=== PATIENT | male | born 1975 | race Two or more races ===

== ENCOUNTER → 2016-05-10 | Outpatient (CLI) | payer BC, OTHER ==
[2016-05-10 09:24] LABS: BASO % 0.3 % (0.0-1.0); EOS # 0.2 K/mm3 (0.0-0.50); EOS % 2.3 % (0.0-3.0); LARGE UNSTAINED CELL # 0.1 K/mm3 (0.0-0.4); LARGE UNSTAINED CELL % 1.7 % (0.0-4.0); LYMPH # 1.8 K/mm3 (1.5-4.5); LYMPH % 25.7 % (24.0-44.0); MEAN CORPUSCULAR HGB CONC 35.4 g/dl (32.0-36.5); MEAN CORPUSCULAR VOLUME 84.8 fl (80.0-96.0); MONO # 0.4 K/mm3 (0.0-0.8); MONO % 6.2 % (0.0-5.0); NEUTROPHILS # 4.5 K/mm3 (1.8-7.7); NEUTROPHILS % 63.7 % (36.0-66.0); PLATELET COUNT, AUTOMATED 173 k/mm3 (150-450); RED CELL DISTRIBUTION WIDTH 12.7 % (11.5-14.5); WHITE BLOOD COUNT 7.1 K/mm3 (4.0-10.0)
[2016-05-10 09:52] LABS: ALBUMIN 3.9 GM/DL (3.2-5.2); ALBUMIN/GLOBULIN RATIO 1.44 (1.00-1.93); ALKALINE PHOSPHATASE 61 U/L (45-117); ALT/SGPT 19 U/L (12-78); ANION GAP 7 MEQ/L (8-16); AST/SGOT 11 U/L (15-37); BILIRUBIN,TOTAL 0.6 MG/DL (0.2-1.0); BLOOD UREA NITROGEN 12 MG/DL (7-18); CALCIUM LEVEL 8.6 MG/DL (8.5-10.1); CARBON DIOXIDE LEVEL 30 MEQ/L (21-32); CHLORIDE LEVEL 106 MEQ/L (98-107); CHOLESTEROL LEVEL 178 MG/DL (<200); CREATININE FOR GFR 1.23 MG/DL (0.70-1.30); FREE T4 1.09 NG/DL (0.76-1.46); GLOMERULAR FILTRATION RATE > 60.0 (>60); GLUCOSE, FASTING 125 MG/DL (70-105); POTASSIUM SERUM 4.6 MEQ/L (3.5-5.1); SODIUM LEVEL 143 MEQ/L (136-145); TOTAL PROTEIN 6.6 GM/DL (6.4-8.2); TRIGLYCERIDES LEVEL 50 MG/DL (<150)
== END ==
LOC: M LAB 05-05 08:49
PROVIDERS: ATTEND Family Medicine
DX: R53.82 Chronic fatigue, unspecified (principal); E66.09 Other obesity due to excess calories

== ENCOUNTER → 2016-05-18 | Outpatient (CLI) | payer BC, OTHER | LOC: M LAB 08:27 | PROVIDERS: ATTEND Family Medicine | DX: R73.9 Hyperglycemia, unspecified (principal) ==

== ENCOUNTER 2017-04-18 14:55 | Emergency (ER) | payer BC, OTHER ==
[2017-04-18] MEDS: NS 1,000 ML IV (15:45)
[2017-04-18] MEDS: MECLIZINE 25 MG TABLET PO (16:02)
[2017-04-18 16:22] LABS: BASO % 0.4 % (0.0-1.0); EOS # 0.2 10^3/uL (0.0-0.50); EOS % 2.2 % (0.0-3.0); HEMATOCRIT 45.3 % (42.0-52.0); HEMOGLOBIN 15.6 g/dl (14.0-18.0); IMMATURE GRANULOCYTE % 0.3 % (0-3.0); LYMPH % 21.6 % (24.0-44.0); MEAN CORPUSCULAR HEMOGLOBIN 28.9 pg (27.0-33.0); MEAN CORPUSCULAR HGB CONC 34.4 g/dl (32.0-36.5); MEAN CORPUSCULAR VOLUME 83.9 fl (80.0-96.0); MONO # 0.6 10^3/uL (0.0-0.8); MONO % 6.6 % (0.0-5.0); NEUTROPHILS # 6.5 10^3/uL (1.8-7.7); NEUTROPHILS % 68.9 % (36.0-66.0); PLATELET COUNT, AUTOMATED 182 10^3/uL (150-450); RED CELL DISTRIBUTION WIDTH 12.6 % (11.5-14.5); WHITE BLOOD COUNT 9.4 10^3/uL (4.0-10.0)
[2017-04-18 16:42] LABS: AMMONIA < 10 uMOL/L (<32)
[2017-04-18 16:59] LABS: ALBUMIN 4.3 GM/DL (3.2-5.2); ALBUMIN/GLOBULIN RATIO 1.34 (1.00-1.93); ALKALINE PHOSPHATASE 65 U/L (45-117); ALT/SGPT 23 U/L (12-78); ANION GAP 6 MEQ/L (8-16); AST/SGOT 15 U/L (7-37); BILIRUBIN,DIRECT 0.2 MG/DL (0.0-0.2); BILIRUBIN,TOTAL 0.7 MG/DL (0.2-1.0); BLOOD UREA NITROGEN 14 MG/DL (7-18); CALCIUM LEVEL 8.4 MG/DL (8.5-10.1); CARBON DIOXIDE LEVEL 27 MEQ/L (21-32); CHLORIDE LEVEL 106 MEQ/L (98-107); CPK CREATINE PHOSPHOKINASE 97 U/L (39-308); CREATININE FOR GFR 1.18 MG/DL (0.70-1.30); GLOMERULAR FILTRATION RATE > 60.0 (>60); GLUCOSE, FASTING 101 MG/DL (70-100); POTASSIUM SERUM 3.9 MEQ/L (3.5-5.1); SALICYLATE LEVEL < 1.7 MG/DL (5.0-30.0); SODIUM LEVEL 139 MEQ/L (136-145); TOTAL PROTEIN 7.5 GM/DL (6.4-8.2); TROPONIN I < 0.02 NG/ML (< 0.10)
[2017-04-18 17:04] LABS: MB/CK RELATIVE INDEX 1.03 (< OR =4)
[2017-04-18 17:09] LABS: ACETAMINOPHEN LEVEL < 2.0 UG/ML (10.0-30.0); ETHYL ALCOHOL (ETHANOL) < 0.003 % (0.000-0.010)
[2017-04-18 17:56] LABS: AMPHETAMINES LEVEL URINE NEGATIVE (NEGATIVE); BARBITURATES URINE NEGATIVE (NEGATIVE); BENZODIAZEPINES URINE NEGATIVE (NEGATIVE); CANNABINOIDS URINE NEGATIVE (NEGATIVE); COCAINE METABOLITE URINE NEGATIVE (NEGATIVE); METHADONE URINE NEGATIVE (NEGATIVE); OPIATES URINE NEGATIVE (NEGATIVE); PHENCYCLIDINE URINE NEGATIVE (NEGATIVE)
== END 2017-04-18 18:07 | disposition home or self-care (01) ==
LOC: M ED 14:55
DX: R42 Dizziness and giddiness (principal); J01.90 Acute sinusitis, unspecified; R00.1 Bradycardia, unspecified; Z88.6 Allergy status to analgesic agent
CPT/HCPCS: 71046

== ENCOUNTER → 2017-06-29 | Outpatient (CLI) | payer BC, OTHER ==
[2017-06-29 10:50] LABS: BASO % 0.3 % (0.0-1.0); EOS # 0.2 10^3/uL (0.0-0.50); HEMATOCRIT 42.9 % (42.0-52.0); HEMOGLOBIN 15.1 g/dl (13.5-17.5); IMMATURE GRANULOCYTE % 0.2 % (0-3.0); LYMPH # 1.8 10^3/uL (1.5-4.5); LYMPH % 27.3 % (24.0-44.0); MEAN CORPUSCULAR HEMOGLOBIN 29.3 pg (27.0-33.0); MEAN CORPUSCULAR HGB CONC 35.2 g/dl (32.0-36.5); MEAN CORPUSCULAR VOLUME 83.1 fl (80.0-96.0); MONO # 0.6 10^3/uL (0.0-0.8); MONO % 9.7 % (0.0-5.0); NEUTROPHILS % 59.5 % (36.0-66.0); PLATELET COUNT, AUTOMATED 179 10^3/uL (150-450); RED BLOOD COUNT 5.16 10^6/uL (4.30-6.10); RED CELL DISTRIBUTION WIDTH 12.7 % (11.5-14.5); WHITE BLOOD COUNT 6.6 10^3/uL (4.0-10.0)
[2017-06-29 11:15] LABS: TESTOSTERONE 531 NG/DL (241-827)
[2017-06-29 11:18] LABS: ALBUMIN 4.1 GM/DL (3.2-5.2); ALBUMIN/GLOBULIN RATIO 1.52 (1.00-1.93); ALKALINE PHOSPHATASE 65 U/L (45-117); ALT/SGPT 24 U/L (12-78); ANION GAP 6 MEQ/L (8-16); AST/SGOT 12 U/L (7-37); BILIRUBIN,TOTAL 0.8 MG/DL (0.2-1.0); BLOOD UREA NITROGEN 17 MG/DL (7-18); CALCIUM LEVEL 8.5 MG/DL (8.5-10.1); CARBON DIOXIDE LEVEL 27 MEQ/L (21-32); CHLORIDE LEVEL 108 MEQ/L (98-107); CHOLESTEROL LEVEL 167 MG/DL (<200); CREATININE FOR GFR 1.23 MG/DL (0.70-1.30); FREE T4 1.19 NG/DL (0.76-1.46); GLOMERULAR FILTRATION RATE > 60.0 (>60); GLUCOSE, FASTING 100 MG/DL (70-100); HDL CHOLESTEROL 50 MG/DL (>40); LDL CHOLESTEROL 108.6 MG/DL (<100); NON-HDL-C 117 MG/DL; POTASSIUM SERUM 4.4 MEQ/L (3.5-5.1); SODIUM LEVEL 141 MEQ/L (136-145); TOTAL PROTEIN 6.8 GM/DL (6.4-8.2); TRIGLYCERIDES LEVEL 42 MG/DL (<150)
[2017-06-29 11:28] LABS: ESTIMATED AVERAGE GLUCOSE 105 MG/DL (60-110); HEMOGLOBIN A1c 5.3 %
[2017-06-29 11:43] LABS: TOTAL 25(OH) VITAMIN D 32.2 NG/ML (30.0-100.0)
== END ==
LOC: M LAB 10:13
DX: J45.909 Unspecified asthma, uncomplicated (principal); R79.89 Other specified abnormal findings of blood chemistry; E55.9 Vitamin D deficiency, unspecified; Z79.899 Other long term (current) drug therapy; T78.49XD Other allergy, subsequent encounter; X58.XXXD Exposure to other specified factors, subsequent encounter; Y92.89 Other specified places as the place of occurrence of the external cause
CPT/HCPCS: 84403

== ENCOUNTER 2018-01-08 19:52 | Emergency (ER) | payer BC, OTHER ==
[2018-01-08 20:45] LABS: KETONE, URINE AUTO RFX NEGATIVE (NEGATIVE); LEUKOCYTE ESTERASE UR AUTO RFX NEGATIVE (NEGATIVE); NITRITE, URINE AUTO RFX NEGATIVE (NEGATIVE); RBC, URINE AUTO RFX 0 /HPF (0-3); SPECIFIC GRAVITY UR AUTO RFX 1.018 (1.002-1.035); SQUAM EPITHELIAL CELL UR AURFX 0 /HPF (0-6); WBC, URINE AUTO RFX 0 /HPF (0-3)
[2018-01-08] MEDS: NS 1,000 ML IV (20:45)
[2018-01-08 20:50] LABS: BASO % 0.3 % (0.0-1.0); EOS # 0.3 10^3/uL (0.0-0.50); EOS % 2.1 % (0.0-3.0); HEMATOCRIT 43.3 % (42.0-52.0); HEMOGLOBIN 14.6 g/dl (13.5-17.5); IMMATURE GRANULOCYTE % 0.3 % (0-3.0); LYMPH # 2.7 10^3/uL (1.5-4.5); LYMPH % 22.9 % (24.0-44.0); MEAN CORPUSCULAR HEMOGLOBIN 28.9 pg (27.0-33.0); MEAN CORPUSCULAR HGB CONC 33.7 g/dl (32.0-36.5); MEAN CORPUSCULAR VOLUME 85.6 fl (80.0-96.0); MONO % 8.3 % (0.0-5.0); NEUTROPHILS # 7.8 10^3/uL (1.8-7.7); NEUTROPHILS % 66.1 % (36.0-66.0); PLATELET COUNT, AUTOMATED 207 10^3/uL (150-450); RED BLOOD COUNT 5.06 10^6/uL (4.30-6.10); RED CELL DISTRIBUTION WIDTH 12.7 % (11.5-14.5); WHITE BLOOD COUNT 11.7 10^3/uL (4.0-10.0)
[2018-01-08 21:09] LABS: ALBUMIN 3.8 GM/DL (3.2-5.2); ALBUMIN/GLOBULIN RATIO 1.31 (1.00-1.93); ALKALINE PHOSPHATASE 73 U/L (45-117); ALT/SGPT 27 U/L (12-78); ANION GAP 8 MEQ/L (8-16); AST/SGOT 19 U/L (7-37); BILIRUBIN,TOTAL 0.4 MG/DL (0.2-1.0); BLOOD UREA NITROGEN 18 MG/DL (7-18); CALCIUM LEVEL 8.6 MG/DL (8.5-10.1); CARBON DIOXIDE LEVEL 27 MEQ/L (21-32); CHLORIDE LEVEL 105 MEQ/L (98-107); CREATININE FOR GFR 1.42 MG/DL (0.70-1.30); GLOMERULAR FILTRATION RATE 58.2 (>60); GLUCOSE, FASTING 101 MG/DL (70-100); LIPASE 98 U/L (73-393); POTASSIUM SERUM 4.7 MEQ/L (3.5-5.1); SODIUM LEVEL 140 MEQ/L (136-145); TOTAL PROTEIN 6.7 GM/DL (6.4-8.2)
[2018-01-08] MEDS ORDERED: ISOVUE-370 76% 100ML VIAL (Q9967) As Ordered (21:27)
[2018-01-08 22:56] LABS: CONTROL LINE MONO INT CTR LINE PRESENT; MONO SCRN NEGATIVE (NEGATIVE)
== END 2018-01-08 23:08 | disposition home or self-care (01) ==
LOC: M ED 19:52
DX: R16.1 Splenomegaly, not elsewhere classified (principal); J45.909 Unspecified asthma, uncomplicated; Z88.8 Allergy status to other drugs, medicaments and biological substances
CPT/HCPCS: Q9967

== ENCOUNTER → 2018-01-11 | Outpatient (CLI) | payer BC, OTHER | LOC: M ADAMS 10:03 | DX: R16.1 Splenomegaly, not elsewhere classified (principal) | CPT/HCPCS: 71046 ==

== ENCOUNTER → 2018-01-11 | Outpatient (REF) | payer OTHER ==
[2018-01-11 13:49] LABS: APPEARANCE, URINE CLEAR (CLEAR); BACTERIA, URINE AUTO NEGATIVE (NEGATIVE); BILIRUBIN, URINE AUTO NEGATIVE (NEGATIVE); BLOOD, URINE BLOOD NEGATIVE (NEGATIVE); COLOR, URINE YELLOW (YELLOW); GLUCOSE, URINE (UA) AUTO NEGATIVE (NEGATIVE); KETONE, URINE AUTO NEGATIVE (NEGATIVE); LEUKOCYTE ESTERASE, URINE AUTO NEGATIVE (NEGATIVE); MUCUS, URINE SMALL (NEGATIVE); NITRITE, URINE AUTO NEGATIVE (NEGATIVE); PROTEIN, URINE AUTO NEGATIVE (NEGATIVE); RBC, URINE AUTO 0 /HPF (0-3); SPECIFIC GRAVITY URINE AUTO 1.013 (1.002-1.035); SQUAMOUS EPITHELIAL CELL UR AU 0 /HPF (0-6); UROBILINOGEN, URINE AUTO 0.2 mg/dL (0.0-2.0); WBC, URINE AUTO 0 /HPF (0-3)
[2018-01-11 13:51] LABS: BASO % 0.2 % (0.0-1.0); EOS # 0.1 10^3/uL (0.0-0.50); EOS % 1.2 % (0.0-3.0); HEMATOCRIT 47.3 % (42.0-52.0); IMMATURE GRANULOCYTE % 0.5 % (0-3.0); LYMPH # 1.3 10^3/uL (1.5-4.5); LYMPH % 12.8 % (24.0-44.0); MEAN CORPUSCULAR HEMOGLOBIN 29.3 pg (27.0-33.0); MEAN CORPUSCULAR HGB CONC 33.8 g/dl (32.0-36.5); MEAN CORPUSCULAR VOLUME 86.6 fl (80.0-96.0); MONO # 0.6 10^3/uL (0.0-0.8); NEUTROPHILS % 79.3 % (36.0-66.0); PLATELET COUNT, AUTOMATED 206 10^3/uL (150-450); RED BLOOD COUNT 5.46 10^6/uL (4.30-6.10); RED CELL DISTRIBUTION WIDTH 12.4 % (11.5-14.5); WHITE BLOOD COUNT 10.1 10^3/uL (4.0-10.0)
== END ==
LOC: M SFHCADAM 10:02
DX: R16.1 Splenomegaly, not elsewhere classified (principal)

== ENCOUNTER → 2018-01-16 | Outpatient (REF) | payer OTHER ==
[2018-01-16 13:19] LABS: RHEUMATOID FACTOR QUANT < 10.0 IU/ML (<15.0)
[2018-01-16 13:19] LABS: C REACTIVE PROTEIN QUANTITATIV < 0.30 MG/DL (0.00-0.30)
[2018-01-16 13:43] LABS: ERYTHROCYTE SEDIMENTATION RATE 3 mm/hr (0-15)
[2018-01-16 13:55] LABS: HIV 1&2 SCREEN CENTAUR NEGATIVE (NEGATIVE)
[2018-01-18 00:40] LABS: Lyme Disease IgG/IgM Antibodie <0.91 ISR (0.00-0.90); Lyme Disease IgM Ab Quantitati <0.80 index (0.00-0.79)
== END ==
LOC: M SFHCADAM 09:59
DX: R16.1 Splenomegaly, not elsewhere classified (principal)
CPT/HCPCS: 86140

== ENCOUNTER → 2018-01-25 | Outpatient (CLI) | payer BC, OTHER | LOC: M LRY 08:06 | DX: R16.1 Splenomegaly, not elsewhere classified (principal) | CPT/HCPCS: 76705 ==

== ENCOUNTER 2018-02-10 21:26 | Emergency (ER) | payer BC, OTHER ==
[2018-02-10] MEDS ORDERED: ONDANSETRON 4MG/2ML VIAL (J2405) IV (22:15)
[2018-02-10] MEDS: GI COCKTAIL 50ML BTL(HYOSCYAMINE/MAALOX/LIDOCAINE VISCOUS)(1:3:1) PO (22:21)
[2018-02-10] MEDS: ONDANSETRON 4 MG ORAL DISINTEGRATING TAB (Q0162 PER 1MG) PO (22:21)
[2018-02-10 22:22] LABS: BASO % 0.3 % (0.0-1.0); EOS # 0.1 10^3/uL (0.0-0.50); EOS % 1.1 % (0.0-3.0); HEMATOCRIT 42.6 % (42.0-52.0); HEMOGLOBIN 14.9 g/dl (13.5-17.5); IMMATURE GRANULOCYTE % 0.3 % (0-3.0); LYMPH # 1.9 10^3/uL (1.5-4.5); MEAN CORPUSCULAR VOLUME 82.9 fl (80.0-96.0); MONO # 0.9 10^3/uL (0.0-0.8); MONO % 8.2 % (0.0-5.0); NEUTROPHILS # 8.3 10^3/uL (1.8-7.7); NEUTROPHILS % 73.1 % (36.0-66.0); PLATELET COUNT, AUTOMATED 172 10^3/uL (150-450); RED BLOOD COUNT 5.14 10^6/uL (4.30-6.10); RED CELL DISTRIBUTION WIDTH 12.5 % (11.5-14.5); WHITE BLOOD COUNT 11.4 10^3/uL (4.0-10.0)
[2018-02-10 22:53] LABS: ANION GAP 9 MEQ/L (8-16); BLOOD UREA NITROGEN 19 MG/DL (7-18); CALCIUM LEVEL 8.5 MG/DL (8.5-10.1); CARBON DIOXIDE LEVEL 25 MEQ/L (21-32); CHLORIDE LEVEL 106 MEQ/L (98-107); CK-MB VALUE MASS < 1.0 NG/ML (<3.6); CPK CREATINE PHOSPHOKINASE 51 U/L (39-308); CREATININE FOR GFR 1.39 MG/DL (0.70-1.30); GLOMERULAR FILTRATION RATE 59.7 (>60); GLUCOSE, FASTING 125 MG/DL (70-100); MB/CK RELATIVE INDEX 1.96 (< OR =4); SODIUM LEVEL 140 MEQ/L (136-145); TROPONIN I < 0.02 NG/ML (< 0.10)
== END 2018-02-10 23:08 | disposition home or self-care (01) ==
LOC: M ED 21:26
DX: K21.9 Gastro-esophageal reflux disease without esophagitis (principal); J45.909 Unspecified asthma, uncomplicated; Z88.8 Allergy status to other drugs, medicaments and biological substances
CPT/HCPCS: Q0162

== ENCOUNTER 2018-02-20 14:28 | Emergency (ER) | payer BC, OTHER ==
[~2018-02-20] VITALS: Ht 188 cm; Wt 109.1 kg
[~2018-02-20 14:28] MED LIST: ADVA115A; AMOX500C PO; CALC500C16 PO; FLON1SPR NARES; FLUTISP; MECL-68 PO; OMEP40CA2 PO; PROAAER10 PO
[2018-02-20 16:03] LABS: BASO % 0.3 % (0.0-1.0); EOS # 0.3 10^3/uL (0.0-0.50); EOS % 3.1 % (0.0-3.0); HEMOGLOBIN 15.8 g/dl (13.5-17.5); LYMPH % 20.9 % (24.0-44.0); MEAN CORPUSCULAR HEMOGLOBIN 29.3 pg (27.0-33.0); MEAN CORPUSCULAR HGB CONC 34.3 g/dl (32.0-36.5); MEAN CORPUSCULAR VOLUME 85.2 fl (80.0-96.0); MONO # 0.6 10^3/uL (0.0-0.8); MONO % 6.5 % (0.0-5.0); NEUTROPHILS # 6.7 10^3/uL (1.8-7.7); NEUTROPHILS % 68.9 % (36.0-66.0); PLATELET COUNT, AUTOMATED 190 10^3/uL (150-450); WHITE BLOOD COUNT 9.7 10^3/uL (4.0-10.0)
[2018-02-20 16:45] LABS: ALBUMIN 4.2 GM/DL (3.2-5.2); ALT/SGPT 20 U/L (12-78); BILIRUBIN,DIRECT 0.2 MG/DL (0.0-0.2); BILIRUBIN,TOTAL 0.9 MG/DL (0.2-1.0); BLOOD UREA NITROGEN 8 MG/DL (7-18); CALCIUM LEVEL 8.7 MG/DL (8.5-10.1); CARBON DIOXIDE LEVEL 25 MEQ/L (21-32); CHLORIDE LEVEL 104 MEQ/L (98-107); CK-MB VALUE MASS < 1.0 NG/ML (<3.6); CPK CREATINE PHOSPHOKINASE 71 U/L (39-308); CREATININE FOR GFR 1.06 MG/DL (0.70-1.30); GLOMERULAR FILTRATION RATE > 60.0 (>60); GLUCOSE, FASTING 105 MG/DL (70-100); LIPASE 47 U/L (73-393); MB/CK RELATIVE INDEX 1.41 (< OR =4); POTASSIUM SERUM 4.3 MEQ/L (3.5-5.1); SODIUM LEVEL 138 MEQ/L (136-145); TOTAL PROTEIN 6.9 GM/DL (6.4-8.2); TROPONIN I < 0.02 NG/ML (< 0.10)
--- NOTE | 2018-02-20 16:53 | REP ---
Clinical: Cough and acute lower chest pain . Comparison: 01/11/2018 . Technique: PA and lateral. Findings: The mediastinum and cardiac silhouette are normal. The lung contreras are clear and without acute consolidation, effusion, or pneumothorax. The skeletal structures are intact and normal. Impression: 1. No acute cardiopulmonary process. Electronically Signed by Erik Marin MD 02/20/2018 04:44 P
[2018-02-20] MEDS ORDERED: BENZ200C70 PO (17:23)
[2018-02-20] MEDS ORDERED: NAPR-49 PO (17:23)
[2018-02-20 17:31] VITALS: BP 130/76
--- NOTE | 2018-02-21 05:56 | ECGEPIP ---
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 Order Number: [id number] Reading MD: Fidel Torres Measurements Intervals [place] Rate: 66 P: 67 OK: 150 QRS: 61 QRSD: 107 T: 40 QT: 373 QTc: 391 Interpretive Statements SINUS RHYTHM MODERATE INTRAVENTRICULAR CONDUCTION DELAY SIMILAR TO 02/10/18 Electronically Signed On 02-21-2018 5:56:50 EST by Fidel Torres
== END 2018-02-20 17:32 | disposition home or self-care (01) ==
LOC: M ED 14:28
DX: R10.13 Epigastric pain (principal); R05 Cough; J45.909 Unspecified asthma, uncomplicated

== ENCOUNTER → 2018-02-22 | Outpatient (CLI) | payer BC, OTHER ==
[~2018-02-22] MED LIST changes: +BENZ200C70 PO; +NAPR-50 PO
--- NOTE | 2018-02-22 14:50 | NUR ---
Pt seen this date for Modified Barium Swallow Study as he reports that he is unable to eat anything but yogurt and c/o cough when trying to swallow according to Dr. Lopez dated 02/17/18. Pt interview revealed that he was coughing some following swallowing after delay but most of his complaints were related to the abdominal area. All consistencies (thin liquid, puree, soft/mixed solid and solid) trialed presented adequate in oral and pharyngeal phase. Pt provided with cursory explanation of GERD and it was recommended that he continue with his recently prescribed medications. MD please consider esophagram. Addendum: 02/22/18 at 1451 by ARLEEN RINCON SHANTHI Amended: Links added.
--- NOTE | 2018-03-02 15:21 | REP ---
MODIFIED BARIUM SWALLOW: Swallowing evaluation. HISTORY: Unintentional weight loss. Dysphagia. Fluoroscopy time is 0.7 minutes. The study is performed by Dr. Marin in conjunction with the swallowing therapist. Lateral fluoroscopy is performed. Recorded images demonstrate no motor discoordination of swallow. No evidence of penetration or aspiration. Electronically Signed by Oseas Benavidez MD 03/02/2018 05:09 P
== END ==
LOC: M ST 13:43
PROVIDERS: ATTEND Family Medicine
DX: R13.10 Dysphagia, unspecified (principal); R63.4 Abnormal weight loss
CPT/HCPCS: 74230; 92611; G8996; G8997; G8998

== ENCOUNTER → 2018-02-22 | Outpatient (CLI) | payer BC, OTHER ==
[~2018-02-22] MED LIST changes: +E-Z-PAQUE 96% w/w SUSP 176GM BTL As Ordered ONE; +VARIBAR NECTAR 40% w/v 240ML SUSP BTL As Ordered ONE; +VARIBAR PUDDING 40% w/v 230ML TUBE As Ordered ONE
--- NOTE | 2018-02-22 08:24 | REP ---
Clinical: Splenomegaly. Comparison: 01/25/2018. Findings: The spleen is moderately enlarged but with normal contour and parenchymal echogenicity without focal splenic lesion identified. Spleen measures 13.1 x 4.3 x 13.2 cm (splenic index 743). The right kidney is normal in reniform shape without hydronephrosis and measures 11.7 x 6.0 x 6.5 cm. No ascites in the left upper quadrant. Impression: Moderate splenomegaly without focal splenic abnormality identified. Electronically Signed by Erik Marin MD 02/22/2018 08:16 A
== END ==
LOC: M RAD 06:51
PROVIDERS: ATTEND Family Medicine
DX: R16.1 Splenomegaly, not elsewhere classified (principal)

== ENCOUNTER → 2018-03-06 | Outpatient (REF) | payer OTHER ==
[~2018-03-06] MED LIST changes: -E-Z-PAQUE 96% w/w SUSP 176GM BTL As Ordered ONE; +PRED10PA2 PO; -VARIBAR NECTAR 40% w/v 240ML SUSP BTL As Ordered ONE; -VARIBAR PUDDING 40% w/v 230ML TUBE As Ordered ONE
[2018-03-06 19:47] LABS: FREE T4 1.28 NG/DL (0.76-1.46); VITAMIN B12 LEVEL > 2000 PG/ML (247-911)
[2018-03-07 09:36] LABS: FOLATE 7.4 NG/ML (>5.4)
== END ==
LOC: M SFHCADAM 12:33
PROVIDERS: ATTEND Family Medicine
DX: R20.2 Paresthesia of skin (principal)

== ENCOUNTER → 2018-03-21 | Outpatient (REF) | payer OTHER ==
[2018-03-21 14:28] LABS: RHEUMATOID FACTOR QUANT < 10.0 IU/ML (<15.0); TOTAL PROTEIN 6.7 GM/DL (6.4-8.2)
[2018-03-21 14:57] LABS: TOTAL 25(OH) VITAMIN D 56.1 NG/ML (30.0-100.0)
[2018-03-23 13:23] LABS: ALBUMIN 4.45 GM/DL (3.29-5.55); ALBUMIN % 66.4 % (55.8-66.1); ALPHA-1-GLOBULIN % 3.9 % (2.9-4.9); ALPHA-1-GLOBULINS 0.26 GM/DL (0.17-0.41); ALPHA-2-GLOBULINS 0.56 GM/DL (0.42-0.99); ALPHA-2-GLOBULINS % 8.3 % (7.1-11.8); BETA-1-GLOBULINS 0.38 GM/DL (0.28-0.60); BETA-1-GLOBULINS % 5.6 % (4.7-7.2); BETA-2-GLOBULINS 0.29 GM/DL (0.19-0.55); BETA-2-GLOBULINS % 4.3 % (3.2-6.5); GAMMA GLOBULIN % 11.5 % (11.1-18.8); GAMMA GLOBULINS 0.77 GM/DL (0.65-1.58)
== END ==
LOC: M LABDRAW1 10:58
PROVIDERS: ATTEND Psychiatry & Neurology Neurology
DX: E55.9 Vitamin D deficiency, unspecified (principal); R53.81 Other malaise; R20.0 Anesthesia of skin

== ENCOUNTER → 2018-04-05 | Outpatient (REF) | payer OTHER, BC ==
[2018-04-07 00:08] LABS: Lyme Disease IgG/IgM Antibodie <0.91 ISR (0.00-0.90); Lyme Disease IgM Ab Quantitati <0.80 index (0.00-0.79)
== END ==
LOC: M LABNEURO 09:01
PROVIDERS: ATTEND Psychiatry & Neurology Neurology
DX: Z11.9 Encounter for screening for infectious and parasitic diseases, unspecified (principal)

== ENCOUNTER 2018-06-18 20:22 | Emergency (ER) | payer BC, OTHER ==
[~2018-06-18] VITALS: Ht 188 cm; Wt 94.5 kg
[~2018-06-18 20:22] MED LIST changes: -NAPR-50 PO; +NAPR-837 PO
[2018-06-18] MEDS ORDERED: methylPREDNISolone INJ 125 MG/2 ML VIAL (J2930) IV ONE (20:45)
[2018-06-18] MEDS ORDERED: NS 1,000 ML IV ONE (20:45)
[2018-06-18] MEDS ORDERED: FAMOTIDINE IV BAG 20 MG in APPROPRIATE DILUENT 1 EA IV ONE (20:45)
[2018-06-18 20:58] LABS: BASO % 0.3 % (0.0-1.0); EOS # 1.9 10^3/uL (0.0-0.50); HEMATOCRIT 50.2 % (42.0-52.0); HEMOGLOBIN 17.2 g/dl (13.5-17.5); LYMPH # 4.2 10^3/uL (1.5-4.5); MEAN CORPUSCULAR HEMOGLOBIN 29.3 pg (27.0-33.0); MEAN CORPUSCULAR HGB CONC 34.3 g/dl (32.0-36.5); MEAN CORPUSCULAR VOLUME 85.4 fl (80.0-96.0); MONO % 8.8 % (0.0-5.0); NEUTROPHILS # 4.5 10^3/uL (1.8-7.7); NEUTROPHILS % 38.6 % (36.0-66.0); PLATELET COUNT, AUTOMATED 272 10^3/uL (150-450); RED BLOOD COUNT 5.88 10^6/uL (4.30-6.10); WHITE BLOOD COUNT 11.7 10^3/uL (4.0-10.0)
[2018-06-18 21:25] LABS: BLOOD UREA NITROGEN 9 MG/DL (7-18); C REACTIVE PROTEIN QUANTITATIV 0.65 MG/DL (0.00-0.30); CALCIUM LEVEL 8.8 MG/DL (8.5-10.1); CARBON DIOXIDE LEVEL 26 MEQ/L (21-32); CHLORIDE LEVEL 102 MEQ/L (98-107); CREATININE FOR GFR 1.08 MG/DL (0.70-1.30); GLOMERULAR FILTRATION RATE > 60.0 (>60); GLUCOSE, FASTING 114 MG/DL (70-100); POTASSIUM SERUM 3.9 MEQ/L (3.5-5.1); SODIUM LEVEL 139 MEQ/L (136-145)
[2018-06-18] MEDS ORDERED: METR375C3 PO (21:27)
[2018-06-18] MEDS ORDERED: DOXY100C PO (21:27)
[2018-06-18] MEDS ORDERED: PRED20TA PO (23:19)
[2018-06-18 23:35] VITALS: BP 109/66
--- NOTE | 2018-06-19 08:52 | REP ---
Portable chest x-ray: Two views presented. History: Dyspnea. Cough. Comparison study: February 20, 2018. Findings: EKG monitoring electrodes overlie the chest. Lungs are well inflated and clear. Heart size is normal. Pulmonary vasculature is not increased. Impression: No active disease. Electronically Signed by Oseas Benavidez MD 06/19/2018 08:44 A
== END 2018-06-18 23:41 | disposition home or self-care (01) ==
LOC: M ED 20:22
DX: T37.3X5A Adverse effect of other antiprotozoal drugs, initial encounter (principal); Y92.9 Unspecified place or not applicable; Y93.9 Activity, unspecified; Z79.899 Other long term (current) drug therapy; Z88.6 Allergy status to analgesic agent; Z88.0 Allergy status to penicillin; Z88.8 Allergy status to other drugs, medicaments and biological substances
CPT/HCPCS: 71045; 80048; 85025; 86140; 93041; 94760; 96365; 96366; 96375; 99285; J2930

== ENCOUNTER → 2018-07-10 | Outpatient (REF) | payer OTHER ==
[~2018-07-10] MED LIST changes: +DOXY100C PO; +METR375C3 PO; +PRED20TA PO
[2018-07-10 13:54] LABS: BLOOD UREA NITROGEN 15 MG/DL (7-18); CARBON DIOXIDE LEVEL 27 MEQ/L (21-32); CHLORIDE LEVEL 106 MEQ/L (98-107); CPK CREATINE PHOSPHOKINASE 38 U/L (39-308); CREATININE FOR GFR 1.01 MG/DL (0.70-1.30); GLOMERULAR FILTRATION RATE > 60.0 (>60); GLUCOSE, FASTING 96 MG/DL (70-100); POTASSIUM SERUM 4.4 MEQ/L (3.5-5.1); SODIUM LEVEL 140 MEQ/L (136-145)
== END ==
LOC: M SFHCPLAZ 10:49
PROVIDERS: ATTEND Internal Medicine Infectious Disease
DX: M79.10 Myalgia, unspecified site (principal); R16.1 Splenomegaly, not elsewhere classified

== ENCOUNTER → 2018-09-07 | Outpatient (CLI) | payer BC, OTHER ==
--- NOTE | 2018-09-08 00:48 | REP ---
Clinical: Malignancy. Technique: Real time chaves scale and color Doppler evaluation using linear high frequency transducer and curved array transducer. Findings: Bilateral testicles and epididymi are normal in contour, size, echogenicity, and vascularity without intratesticular mass lesion, infectious/inflammatory process, or torsion. Right testicle measures 4.8 x 2.7 x 3.2 cm and a 4 mm epididymal head cyst is identified. Left testicle measures 4.8 x 2.5 x 2.9 cm. Small amounts of scrotal fluid noted and nonspecific. Right-sided varicoceles measure up to 2.7 mm on Valsalva. Impression: 1. Normal bilateral testicles and epididymi. 2. Early forming right-sided varicoceles suggested. Electronically Signed by Erik Marin MD 09/08/2018 12:40 A
--- NOTE | 2018-09-08 00:49 | REP ---
Clinical: Malignancy. Technique: Real time chaves scale and color evaluation using curved array transducer. Findings: Bladder is normal in appearance without wall thickening or mass lesion. Bilateral ureteral jets noted. Bladder wall measures 1.7 mm thickness. Prevoid bladder measures 12.3 x 10.4 x 10.1 cm (144 ml). Postvoid bladder measures 4.3 x 4.3 x 2.2 cm (27 ml). Postvoid residual equals 3.2%. Prostate gland measures 4.7 x 3.0 x 4.8 cm (34 ml). Impression: Normal bladder ultrasound. Electronically Signed by Erik Marin MD 09/08/2018 12:41 A
== END ==
LOC: M RAD 06:33
PROVIDERS: ATTEND Internal Medicine
DX: L72.0 Epidermal cyst (principal); C80.1 Malignant (primary) neoplasm, unspecified; R63.4 Abnormal weight loss

== ENCOUNTER → 2018-11-03 | Outpatient (REF) | payer OTHER | LOC: M SFHCPLAZ 16:57 | PROVIDERS: ATTEND Dermatology | DX: D49.2 Neoplasm of unspecified behavior of bone, soft tissue, and skin (principal) ==

== ENCOUNTER → 2018-11-30 | Outpatient (REF) | payer OTHER ==
[2018-12-06 08:19] LABS: LEAD BLOOD ADULT 1 ug/dL (0-4); MERCURY LEVEL None Detected ug/L (0.0-14.9)
== END ==
LOC: M LABNEURO 13:03
PROVIDERS: ATTEND Psychiatry & Neurology Neurology
DX: T56.0X4A Toxic effect of lead and its compounds, undetermined, initial encounter (principal); T56.1X4A Toxic effect of mercury and its compounds, undetermined, initial encounter

== ENCOUNTER → 2018-12-11 | Outpatient (CLI) | payer BC, OTHER ==
[~2018-12-11] MED LIST changes: -OMEP40CA2 PO; +OMEP40CA97 PO
--- NOTE | 2018-12-12 08:18 | REP ---
Clinical: Abdominal pain. Technique: Real time chaves scale ultrasound examination using curved array transducer. Findings: Liver, spleen, and pancreas are normal in appearance, size, and echogenicity. No focal hepatic, splenic or pancreatic lesions are identified. Splenic index equals 296. Gallbladder is normal. No biliary ductal dilatation is appreciated and the common bile duct measures 3.7 mm diameter. The bilateral kidneys are normal without hydronephrosis. Right kidney measures 11.2 x 6.7 x 4.1 cm. Left kidney measures 11.4 x 5.8 x 7.0 cm. Abdominal aorta measures 2.8 cm maximal diameter and appears grossly normal. No ascites. Impression: Normal complete abdominal ultrasound. Electronically Signed by Erik Marin MD 12/12/2018 08:09 A
== END ==
LOC: M RAD 07:29
PROVIDERS: ATTEND Psychiatry & Neurology Neurology
DX: R16.1 Splenomegaly, not elsewhere classified (principal)

== ENCOUNTER 2019-01-05 20:42 | Emergency (ER) | payer BC, OTHER ==
[~2019-01-05] VITALS: Ht 188 cm; Wt 102.0 kg
[2019-01-05 21:20] LABS: BASO % 0.2 % (0.0-1.0); EOS # 0.2 10^3/uL (0.0-0.5); EOS % 1.7 % (0.0-3.0); HEMATOCRIT 43.9 % (42.0-52.0); HEMOGLOBIN 14.9 g/dl (13.5-17.5); LYMPH # 1.5 10^3/uL (1.5-5.0); LYMPH % 12.3 % (24.0-44.0); MEAN CORPUSCULAR HEMOGLOBIN 29.7 pg (27.0-33.0); MEAN CORPUSCULAR HGB CONC 33.9 g/dl (32.0-36.5); MEAN CORPUSCULAR VOLUME 87.6 fl (80.0-96.0); MONO # 1.2 10^3/uL (0.0-0.8); MONO % 9.5 % (0.0-5.0); NEUTROPHILS # 9.5 10^3/uL (1.5-8.5); PLATELET COUNT, AUTOMATED 172 10^3/uL (150-450); RED BLOOD COUNT 5.01 10^6/uL (4.30-6.10); WHITE BLOOD COUNT 12.5 10^3/uL (4.0-10.0)
[2019-01-05] MEDS ORDERED: GI COCKTAIL 50ML BTL(HYOSCYAMINE/MAALOX/LIDOCAINE VISCOUS)(1:3:1) PO ONE (21:45)
[2019-01-05 21:49] LABS: INR 1.12; PROTHROMBIN TIME 14.1 SECONDS (11.8-14.0)
[2019-01-05 21:50] LABS: PARTIAL THROMBOPLASTIN TIME 29.5 SECONDS (25.0-38.4)
[2019-01-05 21:59] LABS: ALT/SGPT 23 U/L (12-78); BLOOD UREA NITROGEN 22 MG/DL (7-18); CALCIUM LEVEL 8.7 MG/DL (8.5-10.1); CARBON DIOXIDE LEVEL 27 MEQ/L (21-32); CHLORIDE LEVEL 106 MEQ/L (98-107); CK-MB VALUE MASS < 1.0 NG/ML (<3.6); CPK CREATINE PHOSPHOKINASE 74 U/L (39-308); CREATININE FOR GFR 1.17 MG/DL (0.70-1.30); GLOMERULAR FILTRATION RATE > 60.0 (>60); GLUCOSE, FASTING 102 MG/DL (70-100); MB/CK RELATIVE INDEX 1.35 (< OR =4); POTASSIUM SERUM 4.1 MEQ/L (3.5-5.1); SODIUM LEVEL 140 MEQ/L (136-145)
[2019-01-05 22:00] LABS: ALBUMIN 3.9 GM/DL (3.2-5.2); BILIRUBIN,DIRECT 0.2 MG/DL (0.0-0.2); BILIRUBIN,TOTAL 0.6 MG/DL (0.2-1.0); TOTAL PROTEIN 6.7 GM/DL (6.4-8.2); TROPONIN I < 0.02 NG/ML (< 0.10)
[2019-01-05] MEDS ORDERED: ISOVUE-370 76% 100ML VIAL (Q9967) As Ordered ONE (22:03)
--- NOTE | 2019-01-05 22:34 | REPVR ---
PROCEDURE INFORMATION: Exam: CT Angiography Chest With Contrast Exam date and time: 01/05/2019 10:14 PM Clinical history: 43 years old, male; Chest pain; Type not specified TECHNIQUE: Imaging protocol: Computed tomographic angiography of the chest with intravenous contrast. 3D rendering: MIP reconstructed images were created and reviewed. Radiation optimization: All CT scans at this facility use at least one of these dose optimization techniques: automated exposure control; mA and/or kV adjustment per patient size (includes targeted exams where dose is matched to clinical indication); or iterative reconstruction. Contrast material: ISOVUE 370; Contrast volume: 75 ml; Contrast route: IV; COMPARISON: CR PORTABLE CHEST X-RAY 01/05/2019 9:01 PM FINDINGS: Pulmonary arteries: There are no pulmonary emboli. Aorta: There is no aortic dissection or aneurysm. Lungs: Multifocal patchy airspace infiltrates in the right lower lobe consistent with pneumonitis. Bibasilar atelectasis. Lungs otherwise clear. Pleural space: Unremarkable. No pneumothorax. No pleural effusion. Heart: Unremarkable. No cardiomegaly. No pericardial effusion. Lymph nodes: Unremarkable. No enlarged lymph nodes. Bones/joints: Unremarkable. No acute fracture. Soft tissues: Unremarkable. IMPRESSION: 1. Multifocal patchy airspace infiltrates in the right lower lobe consistent with pneumonitis. 2. There is no aortic dissection or aneurysm. 3. There are no pulmonary emboli. Electronically signed by: Gagandeep Ospina On 01/05/2019 22:34:29 PM
[2019-01-05] MEDS ORDERED: AZITHROMYCIN 250 MG TAB PO ONE (23:30)
[2019-01-05] MEDS ORDERED: CEFDINIR 300 MG CAP (OMNICEF) PO ONE (23:30)
[2019-01-05] MEDS ORDERED: AZIT-12 PO (23:32)
[2019-01-05] MEDS ORDERED: CEFD1CAP8 PO (23:32)
[2019-01-05 23:43] LABS: CK-MB VALUE MASS < 1.0 NG/ML (<3.6); CPK CREATINE PHOSPHOKINASE 60 U/L (39-308); MB/CK RELATIVE INDEX 1.67 (< OR =4); TROPONIN I < 0.02 NG/ML (< 0.10)
[2019-01-06 00:04] VITALS: BP 119/70
--- NOTE | 2019-01-06 07:24 | ED PDOC ---
Post-Departure Follow-Up radiology rpeort faxed to Hanna Doherty MD Jan 06, 2019 07:24
--- NOTE | 2019-01-06 07:51 | REP ---
Portable chest, 09:04 p.m., single AP view with the patient sitting: Comparisons are the PA and lateral chest, 06/17/2017 and portable chest of 06/18/2018. The lung contreras are clear. The cardiac size is normal. The grady, mediastinum, and skeletal structures are unremarkable. Impression: Negative portable chest. Electronically Signed by Jony Soto MD 01/06/2019 07:43 A
--- NOTE | 2019-01-06 07:59 | ECGEPIP ---
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
--- NOTE | 2019-01-06 07:59 | ECGEPIP ---
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
== END 2019-01-06 00:11 | disposition home or self-care (01) ==
LOC: M ED 20:42
DX: J18.9 Pneumonia, unspecified organism (principal); Z88.1 Allergy status to other antibiotic agents; Z88.8 Allergy status to other drugs, medicaments and biological substances; Z79.51 Long term (current) use of inhaled steroids
CPT/HCPCS: 71045; 71275; 80047; 80048; 80076; 82550; 82553; 84484; 85025; 85610; 85730; 93005; 93041; 94760; 99285; Q9967

== ENCOUNTER → 2019-04-03 | Outpatient (CLI) | payer BC, OTHER ==
[~2019-04-03] MED LIST changes: +AZIT-12 PO; +CEFD1CAP8 PO; -MECL-68 PO; +MECL1TAB31 PO; +METHACHOLINE KIT (J7674) INH ONE
--- NOTE | 2019-04-03 09:30 | PFTRPT ---
Site: [facility], [address] [place], [address] ID: [id number] Name: BECKY CHACON Visit Date: 04/03/2019 Second ID: [id number] Referring Doctor: GURMEET CASTILLO Reviewing Doctor: Rui Dupont MD Oxyhydrogen Welder: Saundra SUAREZ RRT Age: 43 : 1975 Sex: Male Race: Height: 74.00 Inches Weight: 228.00 Lbs BSA: 2.30 Order IDs: [id number] Requested Test(s): <RESP-PFT.METH CHAL> Diagnosis: R05 test meet the ATS standards for acceptability and repeatability. Pt was given four puffs of albuterol for postbronchodilator. Review Status: Not Reviewed Pre-Bronch Post-Bronch Pred Actual %Pred Actual %Chng SPIROMETRY FVC (L) 5.91 6.09 103 6.23 2 FEV1 (L) 4.64 4.70 101 4.60 -1 FEV1/FVC (%) 79 77 97 74 -4 FEF 25% (L/sec) 8.65 10.04 116 8.53 -15 FEF 50% (L/sec) 5.28 4.86 91 4.57 -5 FEF 75% (L/sec) 1.97 1.48 75 1.51 2 FEF 25-75% (L/sec) 4.18 3.97 94 3.67 -7 FEF Max (L/sec) 11.01 11.59 105 11.11 -4 FIVC (L) 5.81 6.10 4 FIF 50% (L/sec) 5.15 3.19 61 4.52 41 FIF Max (L/sec) 4.33 4.81 11 Expiratory Time (sec) 6.71 6.56 -2 Back Extrap Vol (L) 0.18 0.14 -22 Time To FEFmax (sec) 0.077 0.070 -9
== END ==
LOC: M CARPUL 08:36
PROVIDERS: ATTEND Nurse Practitioner Family
DX: R05 Cough (principal)
CPT/HCPCS: 94070; J7674

== ENCOUNTER 2019-05-13 12:28 | Emergency (ER) | payer BC, OTHER ==
[~2019-05-13] VITALS: Ht 188 cm; Wt 104.1 kg
[~2019-05-13 12:28] MED LIST changes: -METHACHOLINE KIT (J7674) INH ONE
[2019-05-13 13:24] LABS: INFLUENZA A AMPLIFICATION POSITIVE (NEGATIVE); INFLUENZA B AMPLIFICATION NEGATIVE (NEGATIVE)
[2019-05-13 13:59] VITALS: BP 130/79
--- NOTE | 2019-05-14 07:30 | REP ---
REASON: Coughing and sweating. COMPARISON: No priors. FINDINGS: The superior mediastinal structures are midline. The cardiac silhouette is unremarkable in size, shape, and position. The diaphragmatic surfaces of the lungs are regular, and the costophrenic angles are clear. The pulmonary contreras are clear. The imaged osseous structures are intact. IMPRESSION: There is no acute cardiopulmonary disease. Electronically Signed by Rios Flaherty DO 05/14/2019 01:28 P
== END 2019-05-13 14:00 | disposition home or self-care (01) ==
LOC: M ED 12:28
DX: J09.X2 Influenza due to identified novel influenza A virus with other respiratory manifestations (principal); K21.9 Gastro-esophageal reflux disease without esophagitis; Z88.1 Allergy status to other antibiotic agents; Z88.6 Allergy status to analgesic agent

== ENCOUNTER → 2019-10-31 | Outpatient (REF) | payer BC, OTHER | LOC: M LAB REF 16:00 | PROVIDERS: ATTEND Dermatology | DX: D23.4 Other benign neoplasm of skin of scalp and neck (principal); L81.4 Other melanin hyperpigmentation ==

== ENCOUNTER → 2020-09-29 | Outpatient (CLI) | payer BC, OTHER ==
[~2020-09-29] MED LIST changes: +OMEP40CA4 PO; -OMEP40CA97 PO
[2020-09-29 11:49] LABS: BASO % 0.4 % (0.0-1.0); EOS # 0.2 10^3/uL (0.0-0.5); EOS % 3.1 % (0.0-3.0); HEMATOCRIT 48.4 % (42.0-52.0); HEMOGLOBIN 15.9 g/dl (13.5-17.5); LYMPH # 1.8 10^3/uL (1.5-5.0); MEAN CORPUSCULAR HEMOGLOBIN 28.8 pg (27.0-33.0); MEAN CORPUSCULAR HGB CONC 32.9 g/dl (32.0-36.5); MEAN CORPUSCULAR VOLUME 87.7 fl (80.0-96.0); MONO # 0.7 10^3/uL (0.0-0.8); MONO % 8.8 % (2.0-8.0); NEUTROPHILS # 4.8 10^3/uL (1.5-8.5); NEUTROPHILS % 63.2 % (36.0-66.0); PLATELET COUNT, AUTOMATED 171 10^3/uL (150-450); RED BLOOD COUNT 5.52 10^6/uL (4.30-6.10); WHITE BLOOD COUNT 7.5 10^3/uL (4.0-10.0)
[2020-09-29 12:10] LABS: HEMOGLOBIN A1c 5.2 %
[2020-09-29 12:28] LABS: ALBUMIN 4.1 GM/DL (3.2-5.2); ALT/SGPT 35 U/L (12-78); BILIRUBIN,TOTAL 0.7 MG/DL (0.2-1.0); BLOOD UREA NITROGEN 16 MG/DL (7-18); CALCIUM LEVEL 9.3 MG/DL (8.5-10.1); CARBON DIOXIDE LEVEL 31 MEQ/L (21-32); CHLORIDE LEVEL 107 MEQ/L (98-107); CHOLESTEROL LEVEL 219 MG/DL (<200); CHOLESTEROL RISK RATIO 3.268 (<5); CREATININE FOR GFR 1.06 MG/DL (0.70-1.30); FREE T4 1.07 NG/DL (0.76-1.46); GLOMERULAR FILTRATION RATE > 60.0 (>60); GLUCOSE, FASTING 103 MG/DL (70-100); HDL CHOLESTEROL 67 MG/DL (>40); LDL CHOLESTEROL 142 MG/DL (<100); NON-HDL-C 152 MG/DL; POTASSIUM SERUM 4.8 MEQ/L (3.5-5.1); SODIUM LEVEL 140 MEQ/L (136-145); TRIGLYCERIDES LEVEL 51 MG/DL (<150)
[2020-09-29 12:31] LABS: TOTAL 25(OH) VITAMIN D 47.7 NG/ML (30.0-100.0)
[2020-09-29 12:32] LABS: FOLATE 6.7 NG/ML (>5.4); VITAMIN B12 LEVEL 701 PG/ML (247-911)
[2020-09-30 15:09] LABS: Lyme Disease IgG/IgM Antibodie <0.91 ISR (0.00-0.90); Lyme Disease IgM Ab Quantitati <0.80 index (0.00-0.79)
== END ==
LOC: M LAB 10:52
PROVIDERS: ATTEND Nurse Practitioner Family
DX: R53.83 Other fatigue (principal); Z13.220 Encounter for screening for lipoid disorders; E55.9 Vitamin D deficiency, unspecified; M79.10 Myalgia, unspecified site

== ENCOUNTER → 2020-10-24 | Outpatient (CLI) | payer BC, OTHER ==
[~2020-10-24] MED LIST changes: -DOXY100C PO; +DOXY100C3 PO; +PROHANCE 279.3MG/ML 15ML VIAL As Ordered ONE; +PROHANCE 279.3MG/ML 5ML VIAL As Ordered ONE
--- NOTE | 2020-10-24 19:53 | REPVR ---
PROCEDURE INFORMATION: Exam: MR Neck Without and With Contrast Exam date and time: 10/24/2020 6:15 PM Age: 45 years old Clinical indication: Pain; Other: Throat/ front neck; Additional info: Pain in throat TECHNIQUE: Imaging protocol: MR images of the neck without and with intravenous contrast. Contrast material: PROHANCE; Contrast volume: 20 ml; Contrast route: INTRAVENOUS (IV); COMPARISON: CT Head without contrast 04/18/2017 3:40 PM FINDINGS: Nasopharynx: Unremarkable. Oropharynx: Unremarkable. Hypopharynx: Unremarkable. Larynx: Unremarkable. Submandibular/Parotid glands: Unremarkable. Retropharyngeal space: Unremarkable. Thyroid: Unremarkable Vasculature: Unremarkable. Lymph nodes: No lymphadenopathy. Soft tissues: Unremarkable. Bones/joints: Unremarkable. IMPRESSION: No abnormality of the neck Electronically signed by: Elvis John On 10/24/2020 19:53:19 PM
== END ==
LOC: M RAD 16:42
PROVIDERS: ATTEND Otolaryngology
DX: R07.0 Pain in throat (principal)
CPT/HCPCS: 70543; A9576

== ENCOUNTER → 2021-11-13 | Outpatient (REF) | payer OTHER, BC ==
[~2021-11-13] MED LIST changes: -CEFD1CAP8 PO; +CEFD300C41 PO; -PROHANCE 279.3MG/ML 15ML VIAL As Ordered ONE; -PROHANCE 279.3MG/ML 5ML VIAL As Ordered ONE
[2021-11-16 19:07] LABS: TESTOSTERONE FREE (DIRECT) 10.5 pg/mL (6.8-21.5)
== END ==
LOC: M LAB REF 15:58
PROVIDERS: ATTEND Internal Medicine
DX: R68.82 Decreased libido (principal)

== ENCOUNTER → 2022-04-08 | Outpatient (REF) | payer OTHER, BC ==
[2022-04-08 17:24] LABS: LIPASE 21 U/L (12-53)
[2022-04-08 17:25] LABS: C REACTIVE PROTEIN QUANTITATIV < 0.40 MG/DL (<1.0)
[2022-04-08 17:26] LABS: IMMUNOGLOBULIN A 263.7 MG/DL (40-350); IRON (FE) 99 UG/DL (65-175); PERCENT SATURATION 33.3 % (19.7-50.0); RHEUMATOID FACTOR QUANT < 3.5 IU/ML (<14); TOTAL IRON BINDING CAPACITY 297 UG/DL (250-425)
[2022-04-08 17:29] LABS: FERRITIN 189.4 NG/ML (10.5-307.3); VITAMIN B12 LEVEL 658 PG/ML (211-911)
[2022-04-12 19:09] LABS: CYCLIC CITRULLINATED PEPTIDE 3 units (0-19); ENDOMYSIAL ABY IgA Negative (Negative); FREE KAPPA LIGHT CHAINS SERUM 13.4 mg/L (3.3-19.4); FREE LAMBDA LIGHT CHAINS SERUM 12.4 mg/L (5.7-26.3); KAPPA/LAMBDA RATIO SERUM 1.08 (0.26-1.65); TISSUE TRANSGLUTAMINASE IgA <2 U/mL (0-3)
== END ==
LOC: M LAB REF 16:20
PROVIDERS: ATTEND Internal Medicine
DX: M13.80 Other specified arthritis, unspecified site (principal); G60.9 Hereditary and idiopathic neuropathy, unspecified; R10.13 Epigastric pain; R53.83 Other fatigue

== ENCOUNTER → 2022-04-09 | Outpatient (REF) | payer OTHER, BC | LOC: M LAB REF 13:18 | PROVIDERS: ATTEND Internal Medicine | DX: R19.7 Diarrhea, unspecified (principal) ==

== ENCOUNTER → 2022-04-22 | Outpatient (CLI) | payer BC, OTHER | LOC: M PLAIMG 09:05 | PROVIDERS: ATTEND Internal Medicine | DX: R10.13 Epigastric pain (principal); R63.4 Abnormal weight loss ==

== ENCOUNTER → 2022-04-27 | Outpatient (REF) | payer OTHER, BC | LOC: M LAB REF 10:15 | PROVIDERS: ATTEND Internal Medicine | DX: R53.83 Other fatigue (principal); R63.4 Abnormal weight loss ==

== ENCOUNTER 2022-05-17 19:35 | Emergency (ER) | payer OTHER, BC ==
[~2022-05-17] VITALS: Ht 188 cm; Wt 114.0 kg
[2022-05-17 19:37] VITALS: BP 141/86
[2022-05-17 21:35] LABS: BASO % 0.2 % (0.0-1.0); EOS # 0.1 10^3/uL (0.0-0.5); HEMATOCRIT 44.3 % (42.0-52.0); HEMOGLOBIN 15.3 g/dl (13.5-17.5); LYMPH # 1.1 10^3/uL (1.5-5.0); LYMPH % 9.4 % (24.0-44.0); MEAN CORPUSCULAR HEMOGLOBIN 29.2 pg (27.0-33.0); MEAN CORPUSCULAR HGB CONC 34.5 g/dl (32.0-36.5); MEAN CORPUSCULAR VOLUME 84.5 fl (80.0-96.0); MONO # 0.5 10^3/uL (0.0-0.8); MONO % 4.2 % (2.0-8.0); NEUTROPHILS # 9.5 10^3/uL (1.5-8.5); NEUTROPHILS % 84.8 % (36.0-66.0); PLATELET COUNT, AUTOMATED 192 10^3/uL (150-450); RED BLOOD COUNT 5.24 10^6/uL (4.30-6.10); WHITE BLOOD COUNT 11.2 10^3/uL (4.0-10.0)
[2022-05-17 21:47] LABS: INR 1.04; PROTHROMBIN TIME 13.8 SECONDS (12.5-14.5)
[2022-05-17 21:48] LABS: PARTIAL THROMBOPLASTIN TIME 28.5 SECONDS (24.8-34.2)
[2022-05-17 21:49] LABS: CK-MB VALUE MASS < 1.0 NG/ML (<3.6); LIPASE 22 U/L (12-53)
[2022-05-17 21:51] LABS: CPK CREATINE PHOSPHOKINASE 52 U/L (46-171); MB/CK RELATIVE INDEX 1.92 (< OR =4)
[2022-05-17 21:52] LABS: ALBUMIN 4.2 G/DL (3.2-5.2); ALKALINE PHOSPHATASE 68 U/L (46-116); ALT/SGPT 15 U/L (7.0-40); AST/SGOT 12 U/L (<34); BILIRUBIN,DIRECT 0.2 MG/DL (<0.4); BILIRUBIN,TOTAL 0.7 MG/DL (0.3-1.2); BLOOD UREA NITROGEN 17 MG/DL (9-23); CALCIUM LEVEL 9.2 MG/DL (8.5-10.1); CARBON DIOXIDE LEVEL 26 MMOL/L (20-31); CHLORIDE LEVEL 104 MMOL/L (98-107); CREATININE FOR GFR 0.86 MG/DL (0.70-1.30); GLOMERULAR FILTRATION RATE > 60.0 (>60); GLUCOSE, FASTING 112 MG/DL (60-100); POTASSIUM SERUM 4.2 MMOL/L (3.5-5.1); SODIUM LEVEL 137 MMOL/L (136-145); TOTAL PROTEIN 6.7 G/DL (5.7-8.2)
[2022-05-17 21:53] LABS: THYROID STIMULATING HORMONE 2.846 uIU/ML (0.55-4.78)
[2022-05-17 21:57] LABS: RSV AMPLIFICATION NEGATIVE (NEGATIVE)
[2022-05-17 23:03] LABS: CK-MB VALUE MASS < 1.0 NG/ML (<3.6)
[2022-05-17 23:05] LABS: CPK CREATINE PHOSPHOKINASE 52 U/L (46-171); MB/CK RELATIVE INDEX 1.92 (< OR =4)
== END 2022-05-17 23:28 | disposition left against medical advice (07) ==
LOC: M ED 19:35
DX: Z53.21 Procedure and treatment not carried out due to patient leaving prior to being seen by health care provider (principal)

== ENCOUNTER 2022-05-18 00:48 | Emergency (ER) | payer BC, OTHER ==
[~2022-05-18] VITALS: Ht 188 cm; Wt 113.3 kg
[2022-05-18 03:42] VITALS: BP 146/91
== END 2022-05-18 09:08 | disposition home or self-care (01) ==
LOC: M ED 00:48
DX: R07.9 Chest pain, unspecified (principal); T38.0X5A Adverse effect of glucocorticoids and synthetic analogues, initial encounter; J45.909 Unspecified asthma, uncomplicated; K21.9 Gastro-esophageal reflux disease without esophagitis; F10.10 Alcohol abuse, uncomplicated; Z88.1 Allergy status to other antibiotic agents; Z88.6 Allergy status to analgesic agent

== ENCOUNTER → 2022-06-16 | Outpatient (REF) | payer OTHER, BC ==
[~2022-06-16] MED LIST changes: +FLUT50SP17; -FLUTISP
== END ==
LOC: M LAB REF 16:31
PROVIDERS: ATTEND Internal Medicine
DX: N41.9 Inflammatory disease of prostate, unspecified (principal)

== ENCOUNTER → 2022-06-29 | Outpatient (REF) | payer OTHER ==
[2022-06-29 18:29] LABS: APPEARANCE, URINE HAZY (CLEAR); BACTERIA, URINE AUTO NEGATIVE (NEGATIVE); BILIRUBIN, URINE AUTO NEGATIVE (NEGATIVE); BLOOD, URINE BLOOD NEGATIVE (NEGATIVE); CALCIUM OXALATE CRYSTALS SMALL; COLOR, URINE AMBER (YELLOW); GLUCOSE, URINE (UA) AUTO NEGATIVE (NEGATIVE); KETONE, URINE AUTO TRACE mg/dL (NEGATIVE); LEUKOCYTE ESTERASE, URINE AUTO NEGATIVE (NEGATIVE); MUCUS, URINE SMALL (NEGATIVE); NITRITE, URINE AUTO NEGATIVE (NEGATIVE); PROTEIN, URINE AUTO NEGATIVE (NEGATIVE); RBC, URINE AUTO 0 /HPF (0-3); SPECIFIC GRAVITY URINE AUTO 1.017 (1.002-1.035); SQUAMOUS EPITHELIAL CELL UR AU 0 /HPF (0-6); UROBILINOGEN, URINE AUTO 0.2 mg/dL (0.0-2.0); WBC, URINE AUTO 1 /HPF (0-3)
== END ==
LOC: M LABSMT 13:50
PROVIDERS: ATTEND Urology
DX: N41.9 Inflammatory disease of prostate, unspecified (principal)

== ENCOUNTER → 2022-08-17 | Outpatient (REF) | payer OTHER ==
[2022-08-17 18:32] LABS: C REACTIVE PROTEIN QUANTITATIV < 0.40 MG/DL (<1.0)
[2022-08-17 21:16] LABS: HIV 1&2 SCREEN NEGATIVE (NEGATIVE)
[2022-08-17 21:24] LABS: HEPATITIS C VIRUS ABY INDEX 0.08 INDEX (<0.8)
[2022-08-19 07:08] LABS: CYTOMEGALOVIRUS IgM ANTIBODY <30.0 AU/mL (0.0-29.9)
== END ==
LOC: M LAB REF 17:10
PROVIDERS: ATTEND Internal Medicine
DX: M13.10 Monoarthritis, not elsewhere classified, unspecified site (principal); R53.83 Other fatigue

== ENCOUNTER → 2022-08-24 | Outpatient (CLI) | payer OTHER ==
[2022-08-24 14:41] LABS: C REACTIVE PROTEIN QUANTITATIV < 0.40 MG/DL (<1.0)
[2022-08-24 14:42] LABS: IMMUNOGLOBULIN A 237.6 MG/DL (40-350)
== END ==
LOC: M WUC 10:42
PROVIDERS: ATTEND Nurse Practitioner
DX: R10.12 Left upper quadrant pain (principal); R14.2 Eructation; R63.4 Abnormal weight loss; K62.89 Other specified diseases of anus and rectum

== ENCOUNTER → 2022-08-24 | Outpatient (CLI) | payer BC, OTHER | LOC: M WUC 10:39 | PROVIDERS: ATTEND Internal Medicine | DX: M54.50 Low back pain, unspecified (principal); R10.2 Pelvic and perineal pain ==

== ENCOUNTER → 2022-08-26 | Outpatient (REF) | payer OTHER | LOC: M LAB REF 15:46 | PROVIDERS: ATTEND Nurse Practitioner | DX: R10.12 Left upper quadrant pain (principal); R14.2 Eructation; R63.4 Abnormal weight loss ==

== ENCOUNTER → 2022-09-08 | Outpatient (REF) | payer OTHER ==
[2022-09-10 17:07] LABS: CMV QUANT DNA PCR (PLASMA) Negative (Negative)
== END ==
LOC: M LAB REF 16:31
PROVIDERS: ATTEND Internal Medicine
DX: R53.83 Other fatigue (principal)

== ENCOUNTER → 2022-11-16 | Outpatient (REF) | payer OTHER ==
[~2022-11-16] MED LIST changes: +MECL-209 PO; -MECL1TAB31 PO
[2022-11-17 17:07] LABS: TESTOSTERONE FREE (DIRECT) 8.6 pg/mL (6.8-21.5)
== END ==
LOC: M LAB REF 11:58
PROVIDERS: ATTEND Internal Medicine
DX: R68.82 Decreased libido (principal); R53.83 Other fatigue

== ENCOUNTER → 2022-12-02 | Outpatient (REF) | payer OTHER ==
[2022-12-04 19:08] LABS: TESTOSTERONE FREE (DIRECT) 10.1 pg/mL (6.8-21.5)
== END ==
LOC: M LAB REF 16:19
PROVIDERS: ATTEND Internal Medicine
DX: N52.9 Male erectile dysfunction, unspecified (principal); R68.82 Decreased libido

== ENCOUNTER → 2023-05-31 | Outpatient (CLI) | payer BC ==
[~2023-05-31] MED LIST changes: +CEFD1CAP9 PO; -CEFD300C41 PO; +E-Z-GAS II EFFERVESCENT PACKET (SODIUM BICARB./CITRIC ACID/SIMETHICONE) As Ordered ONE; +E-Z-HD 98% w/w 340GM SUSP BTL As Ordered ONE; +E-Z-PAQUE 96% w/w SUSP 176GM BTL As Ordered ONE; -FLUT50SP17; +FLUTISP
== END ==
LOC: M RAD 09:23
PROVIDERS: ATTEND Specialist
DX: K21.9 Gastro-esophageal reflux disease without esophagitis (principal); K22.70 Barrett's esophagus without dysplasia

== ENCOUNTER → 2023-11-17 | Outpatient (REF) | payer BC, OTHER ==
[~2023-11-17] MED LIST changes: -E-Z-GAS II EFFERVESCENT PACKET (SODIUM BICARB./CITRIC ACID/SIMETHICONE) As Ordered ONE; -E-Z-HD 98% w/w 340GM SUSP BTL As Ordered ONE; -E-Z-PAQUE 96% w/w SUSP 176GM BTL As Ordered ONE
[2023-11-17 14:03] LABS: PERCENT SATURATION 28.7 % (19.7-50.0)
== END ==
LOC: M LAB REF 12:53
PROVIDERS: ATTEND Internal Medicine
DX: R53.83 Other fatigue (principal)

== ENCOUNTER → 2024-01-02 | Outpatient (REF) | payer OTHER, BC ==
[2024-01-02 14:22] LABS: C REACTIVE PROTEIN QUANTITATIV < 0.40 MG/DL (<1.0)
[2024-01-02 14:24] LABS: RHEUMATOID FACTOR QUANT 5.7 IU/ML (<14)
[2024-01-03 22:32] LABS: CYCLIC CITRULLINATED PEPTIDE < 16 UNITS (<20)
[2024-01-04 09:42] LABS: ANA SCREEN, IFA POSITIVE (NEGATIVE)
== END ==
LOC: M LAB REF 12:31
PROVIDERS: ATTEND Internal Medicine
DX: G60.9 Hereditary and idiopathic neuropathy, unspecified (principal)

== ENCOUNTER → 2024-02-07 | Outpatient (REF) | payer OTHER, BC | LOC: M LAB REF 16:31 | PROVIDERS: ATTEND Physician Assistant | DX: B34.9 Viral infection, unspecified (principal) ==

== ENCOUNTER → 2024-11-27 | Outpatient (REF) | payer BC ==
[2024-11-27 15:26] LABS: TESTOSTERONE 481.0 NG/DL (241-827)
[2024-11-27 15:28] LABS: CORTISOL AM 15.6 UG/DL (4.3-22.4)
== END ==
LOC: M LAB REF 12:06
PROVIDERS: ATTEND Internal Medicine
DX: Z79.899 Other long term (current) drug therapy (principal); R53.83 Other fatigue

== ENCOUNTER → 2025-01-30 | Outpatient (CLI) | payer BC | LOC: M WUC 09:11 | DX: R06.02 Shortness of breath (principal); R07.9 Chest pain, unspecified ==

== ENCOUNTER → 2025-02-04 | Outpatient (CLI) | payer BC | LOC: M CARPUL 15:24 | DX: R06.02 Shortness of breath (principal) ==